=== PATIENT | female | born 1975 | race Caucasian/White ===

== ENCOUNTER 2022-04-16 15:45 | Observation (INO) | payer OTHER, SELFPAY ==
[2022-04-16 15:46] VITALS: BP 112/60; PULSE 65; RESP 18; TEMP 35.7; O2SAT 98; BMI 27.8
--- NOTE | 2022-04-16 15:59 | ED.VIS.GI ---
HPI HPI - GI History of Present Illness Chief Complaint: Abd Pain Abdominal Pain/Flank Pain Onset: Today Context: Sudden Onset Timing: Waxes and wanes Quality: Aching Location: RLQ and LLQ Worsened by: Nothing Relieved by: - (Curled up with pressure) Nausea/Vomiting/Emesis GI Symptom: Positive for Nausea and Vomiting Quality: Positive for Nonbilious; Negative for Blood streaks, Coffee ground or Hematemesis Diarrhea/Melena/Hematochezia GI Symptom: Negative for Diarrhea, Melena or Hematochezia Associated Symptoms Associated Symptoms: Negative for Dysuria, Frequency or Hematuria Narrative Narrative: Patient presents with pain, nausea, and vomiting that began today. Patient states the pain woke her up at approximately 4 AM today. Patient states it has been waxing and waning. Patient describes the pain as severe dull ache. Patient states it is mainly over her lower abdomen and radiates into her back. Patient states it is better whenever she is able to curl up and apply pressure to her lower abdomen. Patient states nothing makes it worse. Patient admits to some nausea and vomiting. Patient denies any hematemesis. Patient denies any coffee-ground emesis. Patient denies any diarrhea, melena, or hematochezia. Patient denies any urinary complaints. [facility] Medical History Hypothyroid Home Medications liothyronine 5 mcg tablet 5 mcg PO DAILY 04/16/22 [History Last Taken Unknown] Allergy/AdvReac Type Severity Reaction Status Date / Time diazepam [From Valium] AdvReac Other Verified 04/16/22 15:47 Surgical History H/O: hysterectomy History of appendectomy Hx of tonsillectomy Social History Smoking Status: Never smoker ROS ROS ED Constitutional Constitutional ED: Reports chills and subjective; Denies fever(s) Eyes Eyes: Denies blurry vision or change in vision ENT ENT ED: Denies rhinorrhea or sore throat Cardiovascular Cardiovascular: Denies chest pain or palpitations Respiratory/Chest Respiratory/Chest: Denies cough or dyspnea Gastrointestinal Gastrointestinal: Reports abdominal pain, nausea and vomiting; Denies diarrhea or melena Genitourinary Genitourinary ED: Denies dysuria or hematuria Musculoskeletal Musculoskeletal: Reports back pain; Denies neck pain Integumentary Denies abscess or rash Neurologic Neurologic: Denies headache(s) or weakness Allergic/Immunologic Allergic/Immunologic ED: Denies mouth swelling or urticaria EXAM Physical Exam Const Vital Signs: 04/16/22 15:46 04/16/22 17:45 Temperature 96.2 F L Temperature Source Temporal Pulse Rate 65 78 Respiratory Rate 18 16 Blood Pressure 112/60 134/78 H Blood Pressure Mean 77 96 Pulse Ox 98 99 Oxygen Delivery Method Room Air Room Air Positive well nourished and well developed General Appearance ED: well developed HEENT Reports moist mucous membranes Neck supple and no JVD Resp normal respiratory effort and clear to auscultation bilaterally Cardio regular rate, regular rhythm and no murmurs GI normal to inspection, nondistended, normoactive bowel sounds Palpation: soft and tender LLQ, RLQ and suprapubic; Negative for guarding or rebound tenderness present Extremity normal to inspection General Extremety ED: Negative for edema or tenderness General Extremity: Negative for edema Neuro oriented x3, CN's II-XII intact bilaterally, moves all extremities, no sensory deficits noted and gait normal Sensorium / Orientation: alert Motor Exam: strength 5/5 throughout Psych mental status grossly normal Skin no rashes or lesions noted MDM MDM MDM Narrative Medical decision making narrative: Patient had labs drawn earlier as an outpatient. These will be reviewed. Differential diagnosis includes gastroenteritis, inflammatory bowel disease, urinary tract infection, ureteral calculus, bowel obstruction, diverticulitis, abscess, and perforation. Outpatient CBC, sed rate, and comprehensive metabolic profile will be reviewed to assess for leukocytosis, anemia, inflammatory marker, electrolyte abnormality, hepatic function, and renal function. Urinalysis will be obtained to assess for urinary tract infection and hematuria. CT scan of the abdomen pelvis will be obtained to assess for bowel obstruction, perforation, abscess, diverticulitis, or enteritis. Patient will be given IV fluids and Zofran. Lab Data Lab results narrative: Outpatient CBC, sed rate, and comprehensive metabolic profile were reviewed. There is no leukocytosis. There is a neutrophil shift. Total bilirubin was slightly elevated at 1.1. The remaining labs were within normal limits. Urinalysis was reviewed and does not show any evidence of urinary tract infection or hematuria. Urine ketones were 150. Labs: Laboratory Results - last 24 hr 04/16/22 16:20 Urine Color Yellow Urine Clarity Clear Urine pH 6.0 Ur Specific [place] 1.025 Urine Protein 30 H Urine Glucose (UA) Normal Urine Ketones 150 A* Urine Occult Blood 10 H Urine Nitrite Negative Urine Bilirubin Negative Urine Urobilinogen Normal Ur Leukocyte Esterase Negative Urine RBC 0-5 SEEN Urine WBC 0-5 SEEN Ur Squamous Epith Cells 0-5 SEEN Urine Bacteria 1+ Urine Mucus 0 SEEN Radiography Diagnostic Testing: Clinical Impression(s) from Imaging Studies Abdomen/Pelvis CT 04/16/22 16:08 IMPRESSION: No evidence for small bowel obstruction.. Postop change status post appendectomy and hysterectomy. Multicystic pelvic mass on the right most likely ovarian. This may be further assessed with pelvic sonogram if indicated Electronically Signed: Con Lawrence MD at 19:41 EST Reading Location ID and State: [facility] / MD , Service support , Transvaginal US 04/16/22 20:00 IMPRESSION: Postop change status post hysterectomy. Large right ovarian cyst with small amount of fluid in the right adnexa. Arterial flow is not clearly visualized and ovarian torsion is not excluded. Clinical correlation is recommended Electronically Signed: Con Lawrence MD at 21:34 EST , CT scan of the abdomen pelvis was reviewed independently by myself. There is a large cystic mass in the right adnexa. There is no evidence of bowel obstruction or perforation. Radiologist also interpreted the CT scan and noted a 5.4 x 3.7 x 5 cm multicystic lesion in the right adnexa. Pelvic ultrasound was obtained to assess for ovarian torsion because of the large cyst. On my independent interpretation, there is no flow to the right ovary. There is a large cyst noted. There is a small amount of free fluid in the right adnexa. Radiologist also interpreted the ultrasound and agrees. Treatment and Re-Evaluation Narrative: Patient required repeat doses of morphine and a dose of Dilaudid. Patient was also given a dose of Bentyl and Phenergan. Patient was given IV fluids. Patient was advised of her findings. Patient was advised of the need for gynecology consultation. Case was discussed with Dr. Lopez. She will be into evaluate the patient and take the patient to the OR for ovarian torsion. Patient understands and is agreeable with this. All questions were answered. Critical Care Time Critical Care Time: Yes Critical care time (excluding procedures): 30-74 minutes (36), Including time spent:, Discussing w/Patient &/or Family/Primary School Teacher Librarian, Discussing w/Consultants, Arranging Admission or Transfer and Performing Direct Patient Care at Bedside Discharge Plan Dx/Rx/DC Orders Clinical Impression: Torsion of right ovary, Abdominal pain Disposition Disposition: Acute Care Hospital [facility]
--- NOTE | 2022-04-16 16:08 | CT_ITS ---
STUDY: CT ABDOMEN AND PELVIS WITH CONTRAST REASON FOR EXAM: Female, 46 years old. Abdominal pain -- IV PO Contrast RADIATION DOSAGE (If Supplied By Facility): CTDIvol = ( 10.98 ) mGy, DLP = ( 810.33 ) mGycm TECHNIQUE: Transaxial images were obtained from the dome of the diaphragm to the symphysis pubis without oral contrast. Oral and amp; IV Gastrografin and amp; 100mL Isovue-370 was administered. Sagittal and coronal images were reconstructed. Individualized dose optimization techniques were used for this CT. COMPARISON: None. FINDINGS: Minor interstitial thickening at the lung bases.. The visualized portions of the heart are within normal limits. Small hiatal hernia is noted Normal liver. Normal gallbladder and extrahepatic biliary system. Normal spleen. Normal pancreas. Normal bilateral adrenal glands. Normal right kidney. Normal left kidney. Normal visualized stomach. Normal small intestine. Normal colon. Postsurgical change status post appendectomy. Normal abdominal aorta. Normal inferior vena cava. Normal retroperitoneum. Normal urinary bladder. Uterus has been removed surgically Multicystic lesion in the right adnexa likely ovarian largest measuring 5. 5.4 x 3.7 cm Normal abdominal wall. Normal osseous structures. CT/Abdomen/Pelvis WITH Contrast IMPRESSION: No evidence for small bowel obstruction.. Postop change status post appendectomy and hysterectomy. Multicystic pelvic mass on the right most likely ovarian. This may be further assessed with pelvic sonogram if indicated Electronically Signed: Con Lawrence MD at 19:41 EST ,
[2022-04-16] MEDS: Ondansetron 4 MG/2 ML Vial IV (16:22)
[2022-04-16] MEDS: Morphine 4 MG/ML Syringe IV (16:22)
[2022-04-16] MEDS: 0.9% Normal Saline 1,000 ML 1000 ML IV (16:23)
[2022-04-16 16:35] LABS: Mucous, Urine 0 SEEN /hpf (<or=2+)
[2022-04-16 16:57] LABS: Color, Urine Yellow (Yellow); Glucose, Dipstick Normal (Normal); Leukocyte Esterase-Dipstick Negative /ul (Negative); Nitrite-Dipstick Negative (Negative); Occult Blood-Urine 10 /ul (Negative); Protein-Dipstick 30 mg/dl (Negative); Specific Gravity, Urine 1.025 (1.002-1.030); Urine Bilirubin Dipstick Negative (Negative); Urine Clarity Clear (Clear); Urine Urobilinogen Normal (Normal)
[2022-04-16 16:59] LABS: Ketone-Dipstick 150 mg/dl (Negative)
--- NOTE | 2022-04-16 17:04 | ED.RN ---
PT STATES UNABLE TO DRINK CT DYE SHE REMAINS NAUSEATED AND PAINFUL
[2022-04-16] MEDS: proMETHazine 25 MG/ML Syringe 6.25 MG IM (17:12)
[2022-04-16] MEDS: Dicyclomine 20 MG/2 ML Vial IM (17:12)
[2022-04-16 17:15] LABS: Bacteria 1+ /hpf (None Seen); Red Blood Cells-Urine 0-5 SEEN /hpf (0-5); Squamous Epithelial Cells - UA 0-5 SEEN /hpf (5-10); White Blood Cells 0-5 SEEN /hpf (0-5)
[2022-04-16 17:45] VITALS: BP 134/78; PULSE 78; RESP 16; O2SAT 99
--- NOTE | 2022-04-16 20:00 | US_ITS ---
STUDY: ULTRASOUND TRANSVAGINAL CLINICAL: Female, 46 years old. Pelvic pain -- Possible ovarian torsion TECHNIQUE: Transvaginal COMPARISON: None. FINDINGS: Uterus not visualized status post hysterectomy as per clinical history Normal right ovary, measuring 6.9 x 5.3 x 5.5 cm. There is a dominant cyst measuring 6 x 4.4 x 4.7 cm. There is no definitive evidence for arterial flow and venous waveforms only was noted making it difficult to exclude possibility of torsion Normal left ovary, measuring 3.8 x 1 0.8, 1.7 cm. There are multiple follicles without a dominant cyst. Small amount of free fluid within the right adnexa. US/Transvaginal Non- IMPRESSION: Postop change status post hysterectomy. Large right ovarian cyst with small amount of fluid in the right adnexa. Arterial flow is not clearly visualized and ovarian torsion is not excluded. Clinical correlation is recommended Electronically Signed: Con Lawrence MD at 21:34 EST ,
[2022-04-16] MEDS: HYDROmorphone 0.5 MG/0.5 ML SYRINGE IV (20:02)
[2022-04-16 21:43] VITALS: BP 112/63; PULSE 79; RESP 16; TEMP 36.7; O2SAT 99; BMI 27.8
[2022-04-16 21:56] VITALS: BP 124/76; PULSE 76; RESP 16; TEMP 36.7; O2SAT 99
--- NOTE | 2022-04-16 22:30 | OP.PCM_ITS ---
Problems Associated Problem List Diagnoses (1) Torsion of right ovary: (2) Abdominal pain: Report of Operation Date of Procedure: 04/16/22 Pre-Operative Diagnosis: torsed Rt ovarian cyst Post-Operative Diagnosis: Same Surgery/Procedure Performed:: Laparoscopic right oophorectomy Description of Surgical Findings:: Torsed enlarged right ovary which is engorged and purple: Hemorrhagic looking with hemoperitoneum in the pelvis Surgeon: Monique Lopez marketing proposal coordinator: Kristen Paniagua Type of Anesthesia: General Anesthesiologist: Saeid Alvarado Specimen's removed: Hemorrhagic right ovary Estimated Blood Loss (mL): 10 mL Fluids Replaced: 900 mL Description of Procedure: In the operating room general anesthesia was obtained the patient was prepped and draped in the usual sterile fashion in the dorsal extended Position. A sponge stick was placed in the vagina and a Aldrich catheter to continuous drainage. After gloves change attention was turned to the abdomen where a subumbilical skin incision was made and the varies needle inserted and after confirming placement with the hanging drop method to the pneumoperitoneum was created. A 5 mm port was inserted and then the camera to reveal a pelvis without adhesions but with an evidently torsed hemorrhagic and swollen right ovary. The left ovary looked normal there was a small amount of hemoperitoneum in the pelvis. 2 more ports were placed in either lower quadrant at 10 mm on the left and a 5 mm on the right. These were placed under direct visualization. The torsed ovary was elevated on the right and untwisted part of the way after which the harmonic scalpel was used to cauterize and cut the infundibulopelvic ligament sequentially for good hemostasis. And Endo Catch was placed and the specimen placed in the bag. The intra- abdominal pressure was reduced to 8 mmHg well we worked the ovary out through the left lower quadrant port. This required macerating the specimen and aspirating a lot of the blood which was engorging it. The hemoperitoneum was aspirated and then the pelvis rinsed out with take 30 mL of normal saline. All instruments were then withdrawn a after reducing the pneumoperitoneum. The left lower quadrant incision was repaired with #0 Vicryl to fascia and all incisions were repaired with #3-0 Vicryl to the subcutaneous tissue for good hemostasis. Steri-Strips and OpSite's were applied after injecting 10 mL of quarter percent plain bupivacaine around all incisions. Sponge and needle counts were correct x2. The patient was then awakened and taken to the recovery area in stable condition after removing the Aldrich catheter and vaginal sponge stick. Complications None noted Admit VTE Documentation VTE Present on Admission: No VTE Mechan Device Prophylaxis: SCD's VTE Pharm Prophylaxis ordered?: No Reason prophylaxis not ordered:: Procedure Not Indicated
[2022-04-16] MEDS: Lubricating Jelly 60 GM Tube 30 GM (22:31)
[2022-04-16] MEDS: Cefotetan 2 GM in 0.9% NS 100 ML IV (22:47)
[2022-04-16 23:43] VITALS: BP 113/72; BP 124/76; PULSE 102; RESP 18; TEMP 37.4; O2SAT 97
[2022-04-16 23:45] VITALS: BP 113/72; BP 124/76; PULSE 102; RESP 16; O2SAT 98
--- NOTE | 2022-04-17 | OV_PTH ---
PATIENT: LISET JAMISON LOC: [facility] U#:[id number] AGE/SX: 46/F ROOM: [facility] RE04/17/[address]: Dr. Monique Lopez MD : 1975 BED: 1 DIS: 04/17/2022 SPEC #: [id number] RECD: 04/17/22 11:30 STATUS: TERRANCE REZainab #: [id number] LY: 04/17/22 00:[address]: Monique Lopez DEPT: SURGICAL PATHOLOGY RECD BY: Gabriel Lam ENTERED: 04/17/22 11:30 SP TYPE: OVARY OTHR DR: Eduardo Gomez MD Tissues: Right ovary Procedures: Surgery Specimen Level IV HEADER OPERATION: Laparoscopic removal of right ovarian torsion cyst PRE-OP DIAGNOSIS: Torsed right ovarian cyst TISSUE SUBMITTED: Right ovary MICROSCOPIC DIAGNOSIS Right ovary, oophorectomy: Ovary with extensive congestion and hemorrhage, consistent with clinical impression of torsion. SJ:sherri 04/18/2022 MICROSCOPIC DESCRIPTION Slides are reviewed. GROSS DESCRIPTION Received in fixative is one container labeled with the patient's name and designated right ovary. The specimen consists of a previously opened congested and hemorrhagic ovary weighing 19 gm and measuring 6 x 5 x 2 cm. The outer surface is smooth without any papillation. Sections reveal congested and hemorrhagic cut surfaces and blood clots. No obvious mass lesion is identified. Dishroom Attendant sections are submitted in four cassettes. / YANETH:sherri 04/17/2022 TC:5 CPT: 98914
[2022-04-17 00:01] VITALS: BP 114/63; BP 124/76; PULSE 81; RESP 16; O2SAT 97
[2022-04-17 00:15] VITALS: BP 112/67; BP 124/76; PULSE 88; RESP 16; TEMP 37.3; O2SAT 98
[2022-04-17 00:45] VITALS: BMI 28.2
[2022-04-17 01:07] VITALS: BP 113/61; PULSE 80; RESP 16; TEMP 36.8; O2SAT 99
[2022-04-17 03:07] VITALS: BP 108/58; PULSE 83; RESP 16; TEMP 36.8; O2SAT 96
[2022-04-17 05:07] VITALS: BP 103/99; PULSE 102; RESP 16; TEMP 37; O2SAT 97
[2022-04-17] MEDS: Ibuprofen 600 MG Tablet PO ×2 (05:31→11:33)
[2022-04-17 07:55] VITALS: BP 107/63; PULSE 83; RESP 16; TEMP 36.8; O2SAT 97
--- NOTE | 2022-04-17 11:16 | CHAPLAIN ---
Type of Pastoral Visit _x__ Initial Visit ___ Follow-up Visit ___ On-call Visit ___ General Patient Visit ___ Spiritual Assessment ___ Family Conference ___ Bereavement ___ Rapid Response ___ Code Blue ___ Other (describe below) Pastoral Care Referral From _x__ Patient ___ Family ___ Nurse ___ Physician ___ Real Estate Firm Manager ___ Railroad Dining Car Steward/Stewardess ___ Other (describe below) Sacrament/Intervention _x__ Active listening ___ Anointing ___ Gnosticism ___ Bereavement ___ Communion ___ Elise exploration ___ ___ Life review _x__ Prayer ___ Reconciliation ___ Sacrament of Sick _x_ Supportive presence ___ Wedding ___ Other (describe below) Pastoral Comments patient reports doing much better now since emergency surgery of yesterday; pt has a friend with her in the room and expresses appreciation for friend who stayed with her throughout this event; pt has family also for support; pt states that her part will be to surrender to what is next for me; pt has elise connections and welcomes a prayer for her needs
== END 2022-04-17 11:40 | disposition home or self-care (01) ==
LOC: ED 19:17 → SDC 21:39 → AC 21:40 → MS3 04-17 00:14 → SDC 04-17 09:11 → MS3 04-17 09:11
PROVIDERS: Admitting Provider Obstetrics & Gynecology Gynecology; Emergency Provider Emergency Medicine; PCP Family Medicine; Visit Provider Obstetrics & Gynecology Gynecology
PROC: (CPT 58720; principal; 2022-04-16 22:30)
DX: N83.511 Torsion of right ovary and ovarian pedicle (principal); N83.201 Unspecified ovarian cyst, right side; E03.9 Hypothyroidism, unspecified; Z79.890 Hormone replacement therapy
CPT/HCPCS: 58661; 00840; 74177; 76830; 81001; 88305; 96361; 96372; 96374; 96375; 99221; 99284; J7030; Q9967; A4216; G0378; J2405

== ENCOUNTER → 2022-04-16 | Outpatient (CLI) | payer OTHER, SELFPAY ==
[2022-04-16 15:34] LABS: Absolute Lymphocyte Count 0.64 X10^3/uL (0.83-4.51); Absolute Neutrophil Count 8.1 X10^3/uL (2.0-7.7); Basophil# 0.02 X10^3/uL; Basophil% 0.2 % (0-1); Hematocrit 39.2 % (37-47); Hemoglobin 12.8 g/dL (12.0-15.0); Lymphocyte # 0.64 X10^3/ul (0.83-4.51); Lymphocyte % 7.1 % (19-41); Mean Corp Hgb Conc 32.7 g/dL (32-36); Mean Corpuscular Volume 88.7 fL (81-99); Mean Platelet Vol. 9.4 fl (6.2-12.0); Monocyte% 2.2 % (0-10); NRBC Flagged by Analyzer 0 % (0-5); Neutrophil # 8.08 X10^3/uL (2.7-7.7); Neutrophil % 90.3 % (47-70); Platelet Count 342 K/mm3 (150-450); RBC Distribution Width CV 12.5 % (11.6-14.6); RBC Distribution Width SD 41.2 fl (35.1-43.9); Red Blood Count 4.42 M/mm3 (4.2-5.4)
[2022-04-16 15:46] LABS: ALB/GLOB Ratio 1.4 RATIO (0.9-2.4); AST(SGOT) 9 U/L (15-37); Alanine Aminotransfer ALT/SGPT 19 U/L (13-56); Albumin, Serum 3.8 g/dL (3.2-5.0); Alkaline Phosphatase 43 U/L (45-117); Anion Gap 10 (5-15); BUN 15 mg/dL (7-18); BUN/Creat Ratio 25.4 RATIO (10-20); Calcium,Total 8.6 mg/dL (8.5-10.1); Chloride 105 mmol/L (98-107); Creatinine, Serum 0.59 mg/dL (0.55-1.02); EST Glomerular Filtration Rate 116 mL/min (>60); Est Glom Filt Rate - Afr Amer 141 mL/min (>60); Globulin 2.7 g/dL (2.2-4.2); Glucose 101 mg/dL (74-106); Potassium 4.2 mmol/L (3.5-5.1); Protein, Total 6.5 g/dL (6.4-8.2); Sodium Level 137 mmol/L (136-145)
[2022-04-16 16:03] LABS: Erythrocyte Sedimentation Rate 4 mm/hr (0-30)
== END | disposition home or self-care (01) ==
PROVIDERS: Referring Provider Family Medicine; Visit Provider Family Medicine
DX: R10.9 Unspecified abdominal pain (principal)
CPT/HCPCS: 36415; 80053; 85025; 85652; 87086; 87088